=== PATIENT | female | born 1960 | race Caucasian/White ===

== ENCOUNTER 2020-05-25 02:03 | Emergency (ER) | payer MEDICAID, SELFPAY ==
--- NOTE | 2020-05-25 | CT_ITS ---
EXAMINATIONS: CT HEAD WITHOUT CONTRAST AND CT CERVICAL SPINE WITHOUT CONTRAST CLINICAL INFORMATION: Pain after fall. Headache. Intoxicated. COMPARISON: 10/11/2017. TECHNIQUE: Contiguous helical images of the brain were obtained without IV contrast. Contiguous helical images of the cervical spine were obtained without IV contrast. Multiplanar reconstructions were performed. DLP: 909 mGy-cm. FINDINGS: There are no pathologic extra-axial fluid collections. The lateral, third, fourth ventricles are nondilated and concordant with the appearance of the sulci. There is no evidence for acute intraparenchymal hemorrhage or infarct. There is neither mass nor mass effect. There is no shift of midline structures. The paranasal sinuses and mastoid air cells are clear. There are no osseous lesions. The cervical vertebra are in normal alignment. There is mild disc height loss at C5/C6. Disc heights and vertebral heights are otherwise well-preserved. There are no fractures. There is no prevertebral soft tissue swelling. There is no cervical lymphadenopathy. The visualized lung apices are clear. IMPRESSION: No evidence for acute intracranial injury. No evidence for acute injury to the cervical spine. Mild lower cervical spine disc height loss. Automated exposure control (Care Dose) Adjustment of the mA and/or kv according to patient size (this includes techniques or standardized protocols for targeted exams where dose is matched to indication / reason for exam; i.e. extremities or head).
[2020-05-25 02:22] VITALS: BP 124/60; PULSE 84; RESP 18; TEMP 36.9; BMI 49.1
--- NOTE | 2020-05-25 02:26 | ED.GENADULT ---
HPI - General Adult General Chief complaint: ETOH/Substance Use Stated complaint: LEG PAIN Time Seen by Provider: 05/25/20 02:10 Source: patient, EMS and RN notes reviewed Mode of arrival: EMS Limitations: other ( intoxication) History of Present Illness HPI narrative: 59-year-old female past medical history significant for bipolar disorder, cocaine abuse, alcohol abuse who presents today after being found by police on the street. The patient is able to tell me that she drink a significant amount today but is not know how much. She blacked out. She does not know whether not she had any trauma. She complains of chronic left lower extremity pain secondary to a previous injury. She reports that she has a throbbing headache. It is rated 8/10 intensity starts in the back of the head and radiates forward. It is unclear when she got this will help his headache started. She denies any numbness, weakness, paresthesias in her extremities. She denies any cervical neck pain. She denies any chest pain or shortness of breath. Related Data Allergies Allergy/AdvReac Type Severity Reaction Status Date / Time erythromycin base Allergy Intermediate RASH Verified 05/25/20 02:50 [Erythromycin Base] lactose Allergy Unknown Hives Verified 05/25/20 02:50 Review of Systems Constitutional: Constitutional: Denies chills, Denies fever(s) and Reports headache(s) Eyes: Eyes: Denies blurry vision and Denies decreased night vision ENT: Reports headache(s) and Denies neck pain Cardiovascular: Cardiovascular: Denies chest pain and Denies dyspnea Respiratory: Respiratory: Denies cough and Denies dyspnea Gastrointestinal: Gastrointestinal: Denies abdominal pain, Denies diarrhea, Denies loose stools, Denies nausea and Denies vomiting Genitourinary: Genitourinary: Denies difficulty voiding, Denies urinary incontinence and Denies urinary hesitancy Musculoskeletal: Musculoskeletal: Denies joint swelling, Denies neck pain, Denies numbness and Denies stiffness Integumentary/Breasts: Skin/Breast: Denies rash and Denies sores Neurologic: Reports headache(s), Denies numbness and Denies radicular pain Psychiatric: Psychiatric: Reports no additional psychiatric complaints Endocrine: Endocrine: Reports no additional endocrine complaints Hematologic/Lymphatic: Hematologic/Lymphatic: Reports no additional hematologic/lymphatic complaints Allergic/Immunologic: Allergic/Immunologic: Reports no additional allergic/immunologic complaints PMFSH Past Medical History Attestation statement: The following information was validated with the patient. Social History Social History (Updated 05/25/20 @ 02:29 by Osei Badillo MD) Alcohol intake: current Alcohol intake frequency: 3 or more drinks per day Alcohol type: hard liquor Smoking Status: Current every day smoker Smoked in Last 30 Days: Yes Use of substances other than those prescribed or required for medical reasons: Unknown Advance Directives: No Advance Directives Information Provided: No Physical Exam Vital Signs and I&O and Narrative: Vital Signs and I&O: Vital Signs Temp 98.4 F 05/25/20 02:22 Pulse 82 05/25/20 06:00 Resp 18 05/25/20 06:00 BP 118/74 05/25/20 06:00 Pulse Ox 98 05/25/20 06:00 Intake & Output 05/24/20 05/24/20 05/25/20 06:59 18:59 06:59 Weight 130 kg Body Mass Index 49.1 Const: General: cooperative, no acute distress, alert and awake Orientation/consciousness: patient oriented x3 HENMT: Head: Yes normal to inspection, Yes normocephalic and Yes atraumatic Ears: hearing grossly normal bilaterally and external ears normal Mouth: Normal oral and palatal mucosa present Eyes: Eyelids: Yes eyelids normal Conjunctivae: conjunctivae normal Sclerae: sclerae normal Corneas: corneas normal EOM: EOMs intact bilaterally Neck: Neck: Yes normal visual inspection, Yes full ROM and Yes trachea midline Resp: Effort & Inspection: normal respiratory effort and no tracheal deviation Auscultation: clear to auscultation bilaterally Cardio: Jugular venous distension: no JVD Rate: regular rate Rhythm: regular rhythm Heart sounds: S1 normal heart sound present and S2 normal heart sound present GI: Inspection: Yes normal to inspection Palpation (GI): Soft to palpation and nontender Skin: General skin exam: no rashes or lesions noted Neuro: General: patient oriented x3 and moves all extremities Motor exam (neuro): Normal motor muscle tone present throughout Extrem: General: Yes normal to inspection and Yes full ROM Left lower extremity: normal to inspection, full ROM and normal capillary refill; no cyanosis Psych: Appearance: grossly normal and well kempt Mental Status: mental status grossly normal Medical Decision Making MDM Narrative Medical decision making narrative: 59-year-old intoxicated female who presents to the emergency department after being found by police. On exam she is obviously intoxicated and complaining of left lower extremity pain which is chronic secondary to previous injury. Is unclear if there was a traumatic accident this evening. Given her headache as well as alcohol use socially CT scan of her head as well as cervical spine to evaluate for traumatic findings. she admits to alcohol use tonight, and with most of her pathology is related to alcohol abuse. CT scan head and cervical spine are without traumatic findings. The patient was monitored for sobriety. She was provided with discharge instructions and return precautions which were acknowledged. Imaging Data CT scan - head: Radiologist's impression: IMPRESSION: No evidence for acute intracranial injury. No evidence for acute injury to the cervical spine. Mild lower cervical spine disc height loss. CT cervical spine: Radiologist's impression: IMPRESSION: No evidence for acute intracranial injury. No evidence for acute injury to the cervical spine. Mild lower cervical spine disc height loss. Discharge Plan Discharge Clinical Impression: Alcoholic intoxication Qualifiers: Complication of substance-induced condition: uncomplicated Qualified Code(s): F10.920 - Alcohol use, unspecified with intoxication, uncomplicated Patient Disposition: Home, Self-Care Instructions: Alcohol Use Disorder (ED) Additional Instructions: Please stop drinking alcohol to excess as it can lead to multiple problems in your life. Followup with your primary care doctor in 1-2 days for reevaluation. If you develop any new or concerning symptoms please return to the emergency department. Interventions: ED Discharge Assessment Last Done: 05/25/20 06:31 Discharge Date/Time: 05/25/20 06:30
[2020-05-25] MEDS: Acetaminophen 325 MG TABLET 650 MG PO (03:12)
[2020-05-25 05:43] VITALS: BP 114/64; PULSE 78; RESP 16; O2SAT 98
--- NOTE | 2020-05-25 05:54 | PC.NURSE ---
PT WAS SLEEPING AND ALL THE SUDDEN PT GOT UP STARTED YELLING AT STAFF STATING IM NOT PERFECT LIKE YOU CUNTS, YOU ARE ALL PILL-POPPING ALCOHOLICS YOU ARE A PRETENTIOUS BITCH SHE WAS LEAVING SHE WAS YELLING ON THE WAY OUT IM A MINORITY IN A SPIC -LOADED NEIGHBORHOOD . PT WAS ESCORTED OUT WITH SECURITY. NO IV'S
[2020-05-25 06:00] VITALS: BP 118/74; PULSE 82; RESP 18; O2SAT 98
--- NOTE | 2020-05-25 06:23 | PC.NURSE ---
PT SLEEPING WAKES TO VERBAL STIMULI, RESPIRATIONS EASY N/L. SKIN W/D. PT CALM AND COOPERATIVE IN ROOM.
== END 2020-05-25 06:30 | disposition home or self-care (01) ==
PROVIDERS: Emergency Provider Emergency Medicine; PCP Family Medicine
DX: F10.10 Alcohol abuse, uncomplicated (principal); F14.10 Cocaine abuse, uncomplicated; F17.200 Nicotine dependence, unspecified, uncomplicated
CPT/HCPCS: 70450; 72125; 99284